=== PATIENT | female | born 1995 | race Caucasian/White ===

== ENCOUNTER → 2017-02-15 | Outpatient (CLI) | payer OTHER ==
--- NOTE | 2017-02-15 14:23 | MAMMOGRAPHY REPORT ---
ULTRASOUND OF RIGHT BREAST: 02/15/2017 CLINICAL HISTORY: 21-year-old woman noticed a lump in the right breast approximately one month ago. No skin changes or nipple discharge. No family history of breast cancer. COMPARISON: No prior exams were available for comparison. FINDINGS: Targeted ultrasound was performed in the 7:00 right breast, 2 cm from the nipple, in the ar ea of palpable lump pointed out by the patient. On palpation, there is a pea-sized firm mobile mass. On ultrasound in the area of concern, there is a multilobulated parallel oriented hypoechoic solid mass versus conglomerate of multiple small masses. This measures approximately 14.5 x 6.3 x 8.8 mm. This could represent a benign fibroadenoma or multiple fibroadenomatoid nodules. Given the solid na ture it is indeterminate and definitive characterization with an ultrasound guided core biopsy is rec ommended. IMPRESSION: ACR BI-RADS CATEGORY 4: SUSPICIOUS - FOLLOW-UP RECOMMENDED Right breast ultrasound guided core biopsy is recommended for a solid palpable 14.5 mm mass versus co nglomerate of masses in the 7:00 right breast, 2 cm from the nipple, which could represent a fibroade noma or multiple fibroadenomatoid nodules. These results and recommendations were discussed with the patient at the time of the exam. Arina Armenta M.D. ay/:02/15/2017 12:26:34 [facility] Specialist: Julia ALFONSO)([place]), [facility] letter sent: Abnormal 4/5 BI-RADS Code: ACR BI-RADS Category 4: Suspicious
== END | disposition home or self-care (01) ==
LOC: C.MAMM 11:21
PROVIDERS: ATTEND Nurse Practitioner Obstetrics & Gynecology
DX: N63.10 Unspecified lump in the right breast, unspecified quadrant (principal)